=== PATIENT | female | born 1990 | race Caucasian/White ===

== ENCOUNTER → 2023-05-21 15:00 | Outpatient (CLI) | payer SELFPAY | LOC: FLU 06-21 13:31 → EMPH 07-22 15:00 | PROVIDERS: Referring Provider Family Medicine; Visit Provider Family Medicine | DX: Z23 Encounter for immunization (principal) | CPT/HCPCS: 90471; 90686 ==

== ENCOUNTER → 2023-08-27 06:51 | Outpatient (CLI) | payer OTHER, SELFPAY ==
--- NOTE | 2023-08-27 07:03 | DI.US.S_ITS ---
PROCEDURE: US FOLLICLE TRANSVAGINAL COMPARISON: None. INDICATIONS: FOLLICLE SURVEY FINDINGS: Uterus is retroverted measuring 7.1 x 4.7 x 6.2 cm. Endometrial complex measures approximately 7 mm. IUD is in appropriate position. Right ovary measures 2.3 x 3.8 x 2.2 cm, volume 9.9 cc. Focus of decreased echogenicity is present measuring 2.2 x 1.3 x 1.3 cm. Left ovary measures 4.4 x 2.3 x 2.3 cm, volume 12.1 cc. There are 2 foci complex echogenicity measuring 2.1 x 1.5 x 1.9 cm and 1.3 x 1.3 x 1.3 cm. Follicle survey: Left ovary: A total of 7 follicles are identified. Follicle 1: 0.5 x 0.3 x 0.4 cm Follicle 2: 0.3 x 0.2 x 0.4 cm Follicle 3: 0.7 x 0.2 x 0.6 cm Follicle 4: 0.4 x 0.2 x 0.4 cm Follicle 5: 0.4 x 0.2 x 0.4 cm Follicle 6: 0.5 x 0.2 x 0.3 cm Follicle 7: 0.3 x 0.2 cm Right ovary: A total of 6 follicles are identified. Follicle 1: 0.5 x 0.4 x 0.2 cm Follicle 2: 0.5 x 0.3 x 0.4 cm Follicle 3: 0.5 x 0.4 x 0.5 cm Follicle 4: 0.6 x 0.5 x 0.4 cm Follicle 5: 0.4 x 0.2 cm Follicle 6: 0.3 x 0.2 cm IMPRESSION: IUD in appropriate location. Follicle survey as above. Dictated by: Brii Carroll M.D. on 08/28/2023 at 11:08 Approved by: Brii Carroll M.D. on 08/28/2023 at 11:15
[2023-08-27 08:22] LABS: HCG Quantitative /Beta subunit < 2.4 mIU/mL
[2023-08-27 08:24] LABS: Follicle Stimulating Hormone 4.38 mIU/mL; Luteinizing Hormone 2.23 mIU/mL; Progesterone, Total 1.09 ng/mL
[2023-08-27 08:39] LABS: Estradiol, Total 71.9 pg/mL
[2023-08-27 08:42] LABS: Thyroid Stimulating Hormone 1.05 uIU/mL (0.47-4.68)
== END ==
PROVIDERS: Referring Provider Obstetrics & Gynecology Reproductive Endocrinology; Visit Provider Obstetrics & Gynecology Reproductive Endocrinology
DX: Z31.49 Encounter for other procreative investigation and testing (principal); Z97.5 Presence of (intrauterine) contraceptive device
CPT/HCPCS: 36415; 76830; 82670; 83001; 83002; 84144; 84443; 84702

== ENCOUNTER → 2023-11-06 17:12 | Outpatient (CLI) | payer BC, OTHER, SELFPAY ==
--- NOTE | 2023-11-06 17:15 | DI.RAD.S_ITS ---
PROCEDURE: XR ANKLE LT MIN 3V INDICATIONS: Left ankle strain TECHNIQUE: 3 views of the ankle were acquired. COMPARISON: None. FINDINGS: Bones: Age indeterminate transverse fracture through tip of lateral malleolus is seen with up to 1 mm diastasis at fracture site. No other fracture or dislocation. Ankle mortise is normally aligned. No suspicious bony lesions. Soft tissues: No tibiotalar joint effusion. Achilles tendon appears normal. IMPRESSION: Age indeterminate transverse fracture through tip of lateral malleolus as above. Clinical correlation is recommended. Dictated by: Yoseph Pathak M.D. on 11/06/2023 at 22:47 Approved by: Yoseph Pathak M.D. on 11/06/2023 at 22:47
== END ==
PROVIDERS: Referring Provider Nurse Practitioner Family; Visit Provider Nurse Practitioner Family
DX: S82.62XA Displaced fracture of lateral malleolus of left fibula, initial encounter for closed fracture (principal); S96.912A Strain of unspecified muscle and tendon at ankle and foot level, left foot, initial encounter; X58.XXXA Exposure to other specified factors, initial encounter
CPT/HCPCS: 73610

== ENCOUNTER 2024-06-16 18:12 | Emergency (ER) | payer BC, SELFPAY ==
[2024-06-16] VITALS (9 sets, daily range): BP systolic 115–142; BP diastolic 77–99; PULSE 66–91; RESP 16; TEMP 36.5–36.6; O2SAT 97–100; BMI 24.0
--- NOTE | 2024-06-16 18:34 | DI.US.S_ITS ---
PROCEDURE: US PELVIC COMPLETE INDICATIONS: RLQ abd pain, please make sure there is doppler TECHNIQUE: Real-time scanning was performed of the pelvic organs, with image documentation. Additional endovaginal scanning was necessary due to incomplete visualization of the adnexal and endometrial structures by transabdominal scanning. COMPARISON: [facility], CT, CT ABDOMEN PELVIS W CON, 06/16/2024, 18:59. FINDINGS: Uterus: Uterus measures 9 x 4 x 5 cm. Retroverted positioning. Image measures 6 mm. IUD is seen within the endometrium. Ovaries: Right ovary is nonenlarged. Suspected small cyst in the left ovary measuring 1.9 x 1.6 cm, possibly hemorrhagic Color and spectral flows are seen Other: No pathologic free abdominal or pelvic fluid. IMPRESSION: Mildly enlarged left ovary. Color and spectral flows are seen. Nonenlarged right ovary. IUD is seen within the endometrial cavity. Dictated by: Jaswant Hammond M.D. on 06/16/2024 at 20:39 Approved by: Jaswant Hammond M.D. on 06/16/2024 at 20:43
--- NOTE | 2024-06-16 18:34 | DI.CT.S_ITS ---
PROCEDURE: CT ABDOMEN PELVIS W CON INDICATIONS: RLQ abd pain TECHNIQUE: After the administration of intravenous contrast, axial sections acquired from the lung bases to the pubic symphysis. Coronal and sagittal reformats were performed. For radiation dose reduction, the following was used: automated exposure control, adjustment of mA and/or kV according to patient size. COMPARISON: None. FINDINGS: Image quality: Diagnostic. Lower Chest: Juxtapleural nodules with smooth margins, favoring benign intrapulmonary lymph nodes. ABDOMEN: Liver: No solid mass. Gallbladder: No radiopaque gallstones or wall thickening. Biliary ducts: No biliary dilation. Pancreas: No ductal dilation. Spleen: Size is within normal limits. Adrenal Glands: No adrenal nodules. Kidneys and Ureters: No hydronephrosis. No solid mass. No complex renal cystic lesion which requires follow up. No nephrolithiasis. Stomach and Bowel: Normal colonic caliber, without significant wall thickening. No colonic diverticulosis. Normal appendix. Peritoneum: No abnormal intraperitoneal fluid. No free air. Ventral Wall: No significant ventral hernia. Abdominal Nodes: No retroperitoneal or mesenteric adenopathy by size criteria. Vessels: Aorta and inferior vena cava are normal in size. PELVIS: Pelvic Organs: IUD appears appropriately positioned within the endometrium. Symmetric ovaries. Bladder: No bladder wall thickening, accounting for underdistention. Pelvic Nodes: No enlarged lymph nodes. Miscellaneous: No inguinal hernias are seen. Bones: No aggressive osseous abnormality. IMPRESSION: No findings to explain the patient's left lower quadrant pain. No diverticular disease. Symmetric ovaries. Normal appendix. No nephrolithiasis. Dictated by: Jan Wall M.D. on 06/16/2024 at 19:23 Approved by: Jan Wall M.D. on 06/16/2024 at 19:26
--- NOTE | 2024-06-16 18:36 | ED.ABDPAIN ---
HPI - Abdominal Pain General Chief Complaint: Abdominal Pain Stated Complaint: abd px Time Seen by Provider: 06/16/24 18:29 History of Present Illness HPI narrative: Patient is a 34-year-old female with no significant past medical history presents to the ED for evaluation of left lower quadrant abdominal pain, states that she normally has abdominal pain with bowel movements ongoing persistent for the past several months, however today it was worse than normal. States that she was straining on the toilet earlier this morning and 1 hour prior to arrival had intense cramping abdominal pain to the left lower quadrant as well as TA the entire lower abdominal pain which is abnormal for her. She denies any vaginal bleeding or discharge, she states that she does have a history of ovarian cysts but has not had any issues with this previously. She denies any other symptoms at this time. No trauma no falls. Related Data Previous Rx's Medication Instructions Recorded hydrocodone 5 mg-acetaminophen 325 1 tab PO Q8H PRN pain #10 tabs 11/06/23 mg tablet Allergies Allergy/AdvReac Type Severity Reaction Status Date / Time No Known Drug Allergies Allergy Verified 11/06/23 16:37 Review of Systems Review of Systems Narrative: General: Denies fever, chills, weight loss HEENT: Denies headache, eye drainage, eye irritation, head trauma, sore throat, voice change Cardiovascular: Denies any chest pain, palpitations, shortness of breath, tachycardia Respiratory: Denies any shortness of breath, cough, wheeze, stridor GI/: Positive abdominal pain, nausea, denies, vomiting, diarrhea, bright red blood per rectum, melanotic stools, urinary frequency, urinary retention, dysuria, hematuria MSK: Denies any joint pain, muscle pains, swelling Skin: Denies any rashes, lesions, discoloration Neuro: Denies any headache, lightheadedness, dizziness, fainting, weakness Psych: Denies SI/HI Exam Narrative Exam Narrative: General: Cooperative, comfortable, well-developed, not in acute distress HEENT: Normocephalic, atraumatic, PERRLA, normal sclera, eyelids normal, Neck: Active full range of motion, atraumatic Chest: Normal to inspection, negative crepitus, no overlying erythema ecchymosis Respiratory: Normal respiratory effort, not in acute respiratory distress, clear to auscultation bilaterally negative cough, wheeze, tachypnea, rhonchi, rales Cardiology: Regular rate rhythm negative gallop, murmur, rubs GI/: Normal to inspection, soft, nonrigid, mild tenderness to palpation of the lower abdomen, exam deferred MSK: Full range of active range of motion of all 4 extremities, atraumatic Skin: No rashes lesions noted Neuro: Alert awake oriented x3, moves all 4 extremities spontaneously, cranial nerves intact, able to answer all questions appropriately follows commands appropriately Psych: Cooperative, negative suicidal or homicidal ideations Initial Vital Signs Initial Vital Signs: Vital Signs Temperature 97.8 F 06/16/24 18:13 Pulse Rate 91 H 06/16/24 18:13 Respiratory Rate 16 06/16/24 18:13 Blood Pressure 142/99 H 06/16/24 18:13 Pulse Oximetry 99 06/16/24 18:13 Oxygen Delivery Method Room Air 06/16/24 18:13 Course Orders Ordered: ED Orders 06/16/24 18:23 Complete Blood Count AUTO DIFF Stat Comprehensive Metabolic Panel Stat HCG Quantitative /Beta subunit Stat Lactate (Lactic Acid) Stat Lipase Stat MAG [Magnesium] Stat 06/16/24 18:34 CT abdomen pelvis w con Stat US pelvic complete Stat Ondansetron HCl (Ondansetron 4 Mg/2 Ml Inj) 4 mg IV NOW PRN PRN Reason: Nausea And Vomiting Last Admin: 06/16/24 19:24 Dose: 4 mg Documented By: BS Ondansetron HCl (Ondansetron 4 Mg Odt) 4 mg PO NOW PRN PRN Reason: Nausea And Vomiting Discontinued Medications Ketorolac Tromethamine (Ketorolac 30 Mg/Ml Vial) 15 mg IV NOW ONE Stop: 06/16/24 18:35 Last Admin: 06/16/24 18:46 Dose: 15 mg Documented By: CTS Vital Signs Vital signs: Vital Signs - 8 hr 06/16/24 18:13 06/16/24 18:25 06/16/24 18:25 Temperature 97.8 F Pulse Rate 91 H 68 Respiratory Rate 16 Blood Pressure 142/99 H 129/89 Pulse Oximetry 99 100 Oxygen Delivery Method Room Air 06/16/24 18:30 06/16/24 18:30 Temperature Pulse Rate 71 Respiratory Rate Blood Pressure 136/94 H Pulse Oximetry 100 Oxygen Delivery Method MDM - Abdominal Pain Differential Diagnosis Differential diagnosis: Likely abdominal pain, acute appendicitis, constipation, diverticulitis, gastroenteritis and small bowel obstruction Lab Data 06/16/24 18:23 06/16/24 18:23 Labs: Lab Results 06/16/24 Range/Units 18:23 WBC 8.1 (4.5-11.0) X10^3/uL RBC 4.28 (4.0-5.2) X10^6/uL Hgb 13.5 (12.0-16.0) g/dL Hct 39.6 (36-46) % MCV 92.5 (80-100) fL MCH 31.6 (26-34) PG MCHC 34.2 (30-36) % RDW 12.6 (11.6-14.8) % Plt Count 336 (150-400) X10^3/uL Neut % (Auto) 52.9 (50-75) % Lymph % (Auto) 35.4 (25-40) % [place] % (Auto) 7.5 (3-14) % Eos % (Auto) 3.3 (2-4) % Baso % (Auto) 0.9 (0-2) % Neut # (Auto) 4300 (2110-5371) /uL Lymph # (Auto) 2900 (0913-3006) /uL [place] # (Auto) 600 (0-900) /uL Eos # (Auto) 300 (0-450) /uL Baso # (Auto) 100 (0-100) /uL Sodium 138 (137-145) mmol/L Potassium 4.1 (3.4-5.1) mmol/L Chloride 107 (98-107) mmol/L Carbon Dioxide 22 (22-32) mmol/L BUN 12 (7-17) mg/dL Creatinine 0.74 (0.52-1.04) mg/dL Estimated GFR > 60 (>60) mL/min BUN/Creatinine Ratio 16.2 (6-22) Glucose 93 (70-100) mg/dL Lactate 0.8 (0.7-2.1) mmol/L Calcium 9.0 (8.4-10.2) mg/dL Magnesium 2.0 (1.6-2.3) mg/dL Total Bilirubin 0.7 (0.2-1.3) mg/dL AST 25 (14-36) IU/L ALT 17 (<35) IU/L Alkaline Phosphatase 49 (38-126) U/L Total Protein 7.6 (6.3-8.2) g/dL Albumin 4.6 (3.5-5.0) g/dL Globulin 3.0 (1.7-4.1) g/dL Albumin/Globulin Ratio 1.5 (1.0-2.8) Lipase 244 (23-300) U/L HCG, Quant < 2.39 mIU/mL Imaging Data CT scan - abdomen/pelvis: Radiologist's Impression: [address] [id number] [address] Scan Report Signed Patient: Micki Thompson MR#: [id number] : 1990 Acct:[id number] Age/Sex: 34 / F Date of Service: 06/16/24 Loc: ED Accession Number: [id number] Procedure: CT abdomen pelvis w con Ordering Provider: Isreal De La Garza D.O. PROCEDURE: CT ABDOMEN PELVIS W CON INDICATIONS: RLQ abd pain TECHNIQUE: After the administration of intravenous contrast, axial sections acquired from the lung bases to the pubic symphysis. Coronal and sagittal reformats were performed. For radiation dose reduction, the following was used: automated exposure control, adjustment of mA and/or kV according to patient size. COMPARISON: None. FINDINGS: Image quality: Diagnostic. Lower Chest: Juxtapleural nodules with smooth margins, favoring benign intrapulmonary lymph nodes. ABDOMEN: Liver: No solid mass. Gallbladder: No radiopaque gallstones or wall thickening. Biliary ducts: No biliary dilation. Pancreas: No ductal dilation. Spleen: Size is within normal limits. Adrenal Glands: No adrenal nodules. Kidneys and Ureters: No hydronephrosis. No solid mass. No complex renal cystic lesion which requires follow up. No nephrolithiasis. Stomach and Bowel: Normal colonic caliber, without significant wall thickening. No colonic diverticulosis. Normal appendix. Peritoneum: No abnormal intraperitoneal fluid. No free air. Ventral Wall: No significant ventral hernia. Abdominal Nodes: No retroperitoneal or mesenteric adenopathy by size criteria. Vessels: Aorta and inferior vena cava are normal in size. PELVIS: Pelvic Organs: IUD appears appropriately positioned within the endometrium. Symmetric ovaries. Bladder: No bladder wall thickening, accounting for underdistention. Pelvic Nodes: No enlarged lymph nodes. Miscellaneous: No inguinal hernias are seen. Bones: No aggressive osseous abnormality. IMPRESSION: No findings to explain the patient's left lower quadrant pain. No diverticular disease. Symmetric ovaries. Normal appendix. No nephrolithiasis. US - abdomen: Radiologist's Impression: [address] [address] Ultrasound Report Signed Patient: Micki Thompson MR#: [id number] : 1990 Acct:[id number] Age/Sex: 34 / F Date of Service: 06/16/24 Loc: ED Accession Number: [id number] Procedure: US pelvic complete Ordering Provider: Isreal De La Garza D.O. PROCEDURE: US PELVIC COMPLETE INDICATIONS: RLQ abd pain, please make sure there is doppler TECHNIQUE: Real-time scanning was performed of the pelvic organs, with image documentation. Additional endovaginal scanning was necessary due to incomplete visualization of the adnexal and endometrial structures by transabdominal scanning. COMPARISON: [facility], CT, CT ABDOMEN PELVIS W CON, 06/16/2024, 18:59. FINDINGS: Uterus: Uterus measures 9 x 4 x 5 cm. Retroverted positioning. Image measures 6 mm. IUD is seen within the endometrium. Ovaries: Right ovary is nonenlarged. Suspected small cyst in the left ovary measuring 1.9 x 1.6 cm, possibly hemorrhagic Color and spectral flows are seen Other: No pathologic free abdominal or pelvic fluid. IMPRESSION: Mildly enlarged left ovary. Color and spectral flows are seen. Nonenlarged right ovary. IUD is seen within the endometrial cavity. [facility] Narrative Medical decision making narrative: Patient is a 34-year-old female with no significant past medical history presents for lower abdominal pain 1 hour prior to arrival. Patient states she does have a history of ovarian cysts, states that she did start her period today. Patient's lab work unremarkable, ultrasound shows small ovarian cyst on the left as well as recent hemorrhagic cyst most likely causing patient's symptoms. CT scan was also performed which did not show any acute findings. On repeat examination patient nontender non peritoneal abdomen, states symptoms resolved after administration medication here. She was given strict return precautions and was instructed follow up with OBGYN and PCP in outpatient setting. She verbalized understanding of this and agrees to being discharged home with outpatient follow up. Discharge Plan Departure Patient Disposition: Home Clinical Impression: Ovarian cyst Activity Restrictions/Additional Instructions: Please follow up with primary care and OBGYN Please read the discharge instructions sheet carefully and bring all papers to all doctor follow-up visits, as it may contain information that your doctor may want to see. Disease processes change and evolve, if your symptoms worsen or if you develop any new symptoms that are concerning to you please return for evaluation. Your evaluation today does not show any evidence of any life-threatening/serious illnesses requiring admission to the hospital or surgery. Please follow-up with your doctor for re-evaluation in approximately 1 day. Seek immediate medical attention for any worrisome symptoms. Prescriptions: No Action hydrocodone-acetaminophen 5-325 mg tablet 1 tab PO Q8H PRN (Reason: pain) Qty: 10 0RF Referrals: Miscellaneous,Doctor, MD [Primary Care Provider] - Stand Alone Forms: Patient Portal/API/Survey
[2024-06-16 18:39] LABS: Add Manual Diff / Slide Review NO; Basophils Absolute Auto 100 /uL (0-100); Basophils Percent Auto 0.9 % (0-2); Eosinophils Absolute Auto 300 /uL (0-450); Eosinophils Percent Auto 3.3 % (2-4); Hematocrit 39.6 % (36-46); Hemoglobin 13.5 g/dL (12.0-16.0); Lymphocytes Absolute Auto 2900 /uL (1100-4500); Lymphocytes Percent Auto 35.4 % (25-40); Mean Corpuscular HGB Conc 34.2 % (30-36); Mean Corpuscular Hemoglobin 31.6 PG (26-34); Mean Corpuscular Volume 92.5 fL (80-100); Monocytes Absolute Auto 600 /uL (0-900); Monocytes Percent Auto 7.5 % (3-14); Neutrophils Absolute Auto 4300 /uL (1500-7000); Neutrophils Percent Auto 52.9 % (50-75); Platelet Count 336 X10^3/uL (150-400); Red Blood Cell Count 4.28 X10^6/uL (4.0-5.2); Red Cell Distribution Width 12.6 % (11.6-14.8); White Blood Cell Count 8.1 X10^3/uL (4.5-11.0)
[2024-06-16] MEDS: KETOROLAC 30 MG/ML VIAL 15 MG IV (18:46)
[2024-06-16 18:58] LABS: Alanine Aminotransferase 17 IU/L (<35); Albumin 4.6 g/dL (3.5-5.0); Albumin Globulin Ratio 1.5 (1.0-2.8); Alkaline Phosphatase 49 U/L (38-126); Aspartate Aminotransferase 25 IU/L (14-36); BUN Creatinine Ratio 16.2 (6-22); Bilirubin Total 0.7 mg/dL (0.2-1.3); Blood Urea Nitrogen 12 mg/dL (7-17); Carbon Dioxide 22 mmol/L (22-32); Chloride 107 mmol/L (98-107); Estimated Glomerular Filt Rate > 60 mL/min (>60); Glucose 93 mg/dL (70-100); HEMOLYSIS < 15 (0-50); Lipase 244 U/L (23-300); Potassium 4.1 mmol/L (3.4-5.1); Sodium 138 mmol/L (137-145); Total Protein 7.6 g/dL (6.3-8.2)
[2024-06-16 18:59] LABS: Lactate (Lactic Acid) 0.8 mmol/L (0.7-2.1)
[2024-06-16 19:16] LABS: HCG Quantitative /Beta subunit < 2.39 mIU/mL
[2024-06-16] MEDS: ONDANSETRON 4 MG/2 ML INJ IV (19:24)
== END 2024-06-16 21:17 | disposition home or self-care (01) ==
PROVIDERS: Emergency Provider Student in an Organized Health Care Education/Training Program
DX: N83.202 Unspecified ovarian cyst, left side (principal)
CPT/HCPCS: 36415; 74177; 76856; 80053; 81003; 83605; 83690; 83735; 84702; 85025; 96374; 96375; 99284; J1885; J2405; Q9967

== ENCOUNTER 2024-09-13 23:03 | Emergency (ER) | payer BC, SELFPAY ==
[2024-09-13 23:11] VITALS: BP 125/76; PULSE 90; RESP 16; O2SAT 99; BMI 23.1
[2024-09-14] VITALS (7 sets, daily range): BP systolic 106–122; BP diastolic 63–75; PULSE 65–102; RESP 8–25; O2SAT 93–100
--- NOTE | 2024-09-14 00:29 | EKG_ITS ---
[address] [place] [address] Test Date: 2024-09-14 Pat Name: Micki Thompson Department: Room: Gender: Female [employer] Specialist: ANTONIO ERENDIRA : 1990 Requested By: Order Number: [id number] Reading MD: Vu Lam Measurements Intervals Ernul Rate: 85 P: 65 NV: 148 QRS: 86 QRSD: 108 T: 56 QT: 374 QTc: 445 Interpretive Statements Sinus rhythm with frequent premature ventricular complexes in a pattern of bigeminy Nonspecific ST abnormality Electronically Signed On 09-14-2024 9:10:08 PST by Vu Lam
[2024-09-14] MEDS: SODIUM CHLORIDE 0.9% 1,000 ML 1000 ML IV (00:31)
[2024-09-14] MEDS: METOCLOPRAMIDE 10 MG/2 ML INJ IV (00:32)
[2024-09-14] MEDS: diphenhydrAMINE 50 MG/ML VIAL 25 MG IV (00:32)
[2024-09-14] MEDS: DEXAMETHASONE 10 MG/ML VIAL IV (00:32)
[2024-09-14] MEDS: MAGNESIUM SULFATE 2 GM/50 ML PIGGYBACK IV (00:33)
[2024-09-14] MEDS: ACETAMINOPHEN 325 MG TABLET 650 MG PO (00:41)
[2024-09-14 00:46] LABS: Add Manual Diff / Slide Review NO; Basophils Absolute Auto 100 /uL (0-100); Basophils Percent Auto 0.8 % (0-2); Eosinophils Absolute Auto 200 /uL (0-450); Eosinophils Percent Auto 2.7 % (2-4); Hematocrit 40.4 % (36-46); Hemoglobin 13.9 g/dL (12.0-16.0); Lymphocytes Absolute Auto 2300 /uL (1100-4500); Lymphocytes Percent Auto 28.5 % (25-40); Mean Corpuscular HGB Conc 34.3 % (30-36); Mean Corpuscular Hemoglobin 31.1 PG (26-34); Mean Corpuscular Volume 90.7 fL (80-100); Monocytes Absolute Auto 700 /uL (0-900); Monocytes Percent Auto 8.2 % (3-14); Neutrophils Absolute Auto 4900 /uL (1500-7000); Neutrophils Percent Auto 59.8 % (50-75); Platelet Count 264 X10^3/uL (150-400); Red Blood Cell Count 4.45 X10^6/uL (4.0-5.2); Red Cell Distribution Width 12.9 % (11.6-14.8); White Blood Cell Count 8.2 X10^3/uL (4.5-11.0)
[2024-09-14 00:52] LABS: BUN Creatinine Ratio 17.4 (6-22); Blood Urea Nitrogen 12 mg/dL (7-17); Calcium 9.2 mg/dL (8.4-10.2); Carbon Dioxide 27 mmol/L (22-32); Chloride 105 mmol/L (98-107); Creatine Kinase 24 U/L (30-135); Estimated Glomerular Filt Rate > 60 mL/min (>60); Glucose 103 mg/dL (70-100); HEMOLYSIS < 15 (0-50); Lipase 228 U/L (23-300); Magnesium 1.9 mg/dL (1.6-2.3); Potassium 3.5 mmol/L (3.4-5.1); Sodium 137 mmol/L (137-145)
--- NOTE | 2024-09-14 00:54 | PC.NURSE ---
Pt states MATTHEWS started in morning and worsened while driving home at 7 pm (nausea) started. Went home took a zofran and improved nausea a lot.
[2024-09-14 01:03] LABS: Troponin I < 0.012 ng/mL (0.01-0.034)
--- NOTE | 2024-09-14 01:22 | ED.HA ---
HPI - Headache General Chief Complaint: Headache Stated Complaint: headache, nausea, lower than normal HR Time Seen by Provider: 09/14/24 00:20 Mode of arrival: Ambulatory History of Present Illness HPI Narrative: 34-year-old female without any significant past medical history comes into the ED from home for evaluation of headache, states that she has a history of headaches however today she had worsening headache, states the right side lights and sounds make it worse no trauma no falls no other visual disturbances patient states that she was dealing with this however states that she also was feeling some palpitations felt like her heart rate was going slow therefore decided come into the ED for further evaluation treatment. She denies any chest pain shortness breath fever chills nausea vomiting abdominal pain or any other GI/ symptoms at this time. Related Data Previous Rx's Medication Instructions Recorded hydrocodone 5 mg-acetaminophen 325 1 tab PO Q8H PRN pain #10 tabs 11/06/23 mg tablet Allergies Allergy/AdvReac Type Severity Reaction Status Date / Time No Known Drug Allergies Allergy Verified 11/06/23 16:37 Review of Systems Review of Systems Narrative: General: Denies fever, chills, weight loss HEENT: Positive headache, denies eye drainage, eye irritation, head trauma, sore throat, voice change Cardiovascular: Positive palpitations, Denies any chest pain, shortness of breath, tachycardia Respiratory: Denies any shortness of breath, cough, wheeze, stridor GI/: Denies any abdominal pain, nausea, vomiting, diarrhea, bright red blood per rectum, melanotic stools, urinary frequency, urinary retention, dysuria, hematuria MSK: Denies any joint pain, muscle pains, swelling Skin: Denies any rashes, lesions, discoloration Neuro: Denies any headache, lightheadedness, dizziness, fainting, weakness Psych: Denies SI/HI Patient History Social History Smoking Status: Never smoker Smoking Status: Never smoker Exam Narrative Exam Narrative: General: Cooperative, comfortable, well-developed, not in acute distress HEENT: Normocephalic, atraumatic, PERRLA, normal sclera, eyelids normal, Neck: Active full range of motion, atraumatic Chest: Normal to inspection, negative crepitus, no overlying erythema ecchymosis Respiratory: Normal respiratory effort, not in acute respiratory distress, clear to auscultation bilaterally negative cough, wheeze, tachypnea, rhonchi, rales Cardiology: Regular rate rhythm negative gallop, murmur, rubs GI/: Normal to inspection, soft, nonrigid, no tenderness to palpation, exam deferred MSK: Full range of active range of motion of all 4 extremities, atraumatic Skin: No rashes lesions noted Neuro: NIH of 0, no focal deficits noted Alert awake oriented x3, moves all 4 extremities spontaneously, cranial nerves intact, able to answer all questions appropriately follows commands appropriately Psych: Cooperative, negative suicidal or homicidal ideations Initial Vital Signs Initial Vital Signs: Vital Signs Pulse Rate 90 09/13/24 23:11 Respiratory Rate 16 09/13/24 23:11 Blood Pressure 125/76 09/13/24 23:11 Pulse Oximetry 99 09/13/24 23:11 Oxygen Delivery Method Room Air 09/13/24 23:11 Course Orders Ordered: ED Orders 09/14/24 00:29 EKG-12 Lead Stat 09/14/24 00:31 BMP [Basic Metabolic Panel] Stat CBC Auto Diff [Complete Blood Count AUTO DIFF] Stat Lipase Stat MAG [Magnesium] Stat TSH [Thyroid Stimulating Hormone] Stat Troponin & CK Cardiac Panel Stat Discontinued Medications Acetaminophen (Acetaminophen 325 Mg Tablet) 650 mg PO NOW ONE Stop: 09/14/24 00:21 Last Admin: 09/14/24 00:41 Dose: 650 mg Documented By: Dexamethasone (Dexamethasone 10 Mg/Ml Vial) 10 mg IV NOW ONE Stop: 09/14/24 00:21 Last Admin: 09/14/24 00:32 Dose: 10 mg Documented By: Diphenhydramine HCl (Diphenhydramine 50 Mg/Ml Vial) 25 mg IV NOW ONE Stop: 09/14/24 00:21 Last Admin: 09/14/24 00:32 Dose: 25 mg Documented By: Sodium Chloride (Normal Saline 0.9%) 1,000 mls @ 1,000 mls/hr IV BOLUS ONE Stop: 09/14/24 01:19 Last Admin: 09/14/24 00:31 Dose: 1,000 mls/hr Documented By: Magnesium Sulfate (Magnesium Sulfate) 2 gm in 50 mls @ 150 mls/hr IV NOW ONE Stop: 09/14/24 00:43 Last Infusion: 09/14/24 01:01 Dose: Infused Documented By: Co-signed By: EVANGELIST Admin: 09/14/24 00:33 Dose: 150 mls/hr Documented By: Co-signed By: SAM Metoclopramide HCl (Metoclopramide 10 Mg/2 Ml Inj) 10 mg IV NOW ONE Stop: 09/14/24 00:21 Last Admin: 09/14/24 00:32 Dose: 10 mg Documented By: AB Vital Signs Vital signs: Vital Signs - 8 hr 09/13/24 23:11 09/14/24 00:19 09/14/24 00:20 Pulse Rate 90 75 Respiratory Rate 16 14 Blood Pressure 125/76 106/63 Pulse Oximetry 99 93 Oxygen Delivery Method Room Air 09/14/24 00:20 09/14/24 00:30 09/14/24 00:47 Pulse Rate 65 102 H Respiratory Rate 8 L 25 H Blood Pressure 118/64 Pulse Oximetry 98 99 Oxygen Delivery Method 09/14/24 00:47 Pulse Rate 83 Respiratory Rate 14 Blood Pressure Pulse Oximetry 99 Oxygen Delivery Method Room Air MDM - Headache Differential Diagnosis Differential diagnosis: Likely migraine, tension headache and other (Electrolyte abnormality, ACS,) Lab Data 09/14/24 00:31 09/14/24 00:31 Labs: Lab Results 09/14/24 Range/Units 00:31 WBC 8.2 (4.5-11.0) X10^3/uL RBC 4.45 (4.0-5.2) X10^6/uL Hgb 13.9 (12.0-16.0) g/dL Hct 40.4 (36-46) % MCV 90.7 (80-100) fL MCH 31.1 (26-34) PG MCHC 34.3 (30-36) % RDW 12.9 (11.6-14.8) % Plt Count 264 (150-400) X10^3/uL Neut % (Auto) 59.8 (50-75) % Lymph % (Auto) 28.5 (25-40) % Ponce % (Auto) 8.2 (3-14) % Eos % (Auto) 2.7 (2-4) % Baso % (Auto) 0.8 (0-2) % Neut # (Auto) 4900 (6309-9556) /uL Lymph # (Auto) 2300 (8669-2400) /uL Ponce # (Auto) 700 (0-900) /uL Eos # (Auto) 200 (0-450) /uL Baso # (Auto) 100 (0-100) /uL Sodium 137 (137-145) mmol/L Potassium 3.5 (3.4-5.1) mmol/L Chloride 105 (98-107) mmol/L Carbon Dioxide 27 (22-32) mmol/L BUN 12 (7-17) mg/dL Creatinine 0.69 (0.52-1.04) mg/dL Estimated GFR > 60 (>60) mL/min BUN/Creatinine Ratio 17.4 (6-22) Glucose 103 H (70-100) mg/dL Calcium 9.2 (8.4-10.2) mg/dL Magnesium 1.9 (1.6-2.3) mg/dL Total Creatine Kinase 24 L (30-135) U/L Troponin I < 0.012 (0.01-0.034) ng/mL Lipase 228 (23-300) U/L ECG Data Interpretation: EKG interpreted by ED physician sinus at 85 beats per minute QTC 445 frequent PVCs noted MDM Narrative Medical decision making narrative: 34-year-old female without any significant past medical history presents to the ED for headache palpitations. Patient states he had sudden-onset headache, light sounds made symptoms worse to the right side of her head no trauma no falls, had complete resolution of symptoms after administration of medication here. Patient stating that she was also feeling palpitation felt like her heart rate was extremely slow which was 1 of the reason she came in, she states that this only lasted for a few seconds has not had any other palpitations chest pain shortness of breath since the initial symptoms several hours prior to arrival. To note patient did have EKG which showed frequent PVCs however on monitor here PVCs abated after 2 g of magnesium patient remained asymptomatic during her stay here in the emergency department. Patient states that she is completely normal at this time. Patient was instructed follow up with PCP cardiology outpatient setting strict return precautions given verbalized understanding of this case being discharged home with outpatient follow up Discharge Plan Departure Patient Disposition: Home Clinical Impression: Headache, Frequent PVCs Instructions: DI for Headache Activity Restrictions/Additional Instructions: Please follow up with Cardiology and primary care in outpatient setting Please read the discharge instructions sheet carefully and bring all papers to all doctor follow-up visits, as it may contain information that your doctor may want to see. Disease processes change and evolve, if your symptoms worsen or if you develop any new symptoms that are concerning to you please return for evaluation. Your evaluation today does not show any evidence of any life-threatening/serious illnesses requiring admission to the hospital or surgery. Please follow-up with your doctor for re-evaluation in approximately 1 day. Seek immediate medical attention for any worrisome symptoms. *If you do not have a primary care provider please contact the [facility] Resource line at [phone]. They will ask some questions about your medical history and help get you set up with a doctor in the community. Prescriptions: No Action hydrocodone-acetaminophen 5-325 mg tablet 1 tab PO Q8H PRN (Reason: pain) Qty: 10 0RF Referrals: Miscellaneous,DoctorMD [Primary Care Provider] - Uziel Haas MD [Physician] - Stand Alone Forms: Patient Portal/API/Survey
[2024-09-14 01:28] LABS: Thyroid Stimulating Hormone 1.88 uIU/mL (0.47-4.68)
== END 2024-09-14 01:40 | disposition home or self-care (01) ==
PROVIDERS: Emergency Provider Student in an Organized Health Care Education/Training Program
DX: R51.9 Headache, unspecified (principal); I49.3 Ventricular premature depolarization; R00.2 Palpitations
CPT/HCPCS: 36415; 80048; 82550; 83690; 83735; 84443; 84484; 85025; 93005; 96365; 96375; 99284; J1100; J1200; J2765; J3475

== ENCOUNTER → 2024-09-29 08:52 | Outpatient (CLI) | payer BC, SELFPAY ==
[2024-09-29 10:50] LABS: Alanine Aminotransferase 19 IU/L (<35); Albumin 4.5 g/dL (3.5-5.0); Albumin Globulin Ratio 1.8 (1.0-2.8); Alkaline Phosphatase 51 U/L (38-126); Aspartate Aminotransferase 22 IU/L (14-36); Bilirubin Total 0.9 mg/dL (0.2-1.3); Bilirubin Unconjugated 0.7 mg/dL (0.0-1.1); Cholesterol 169 mg/dL (140-199); Globulin 2.5 g/dL (1.7-4.1); HDL Cholesterol 57 mg/dL (40-60); HEMOLYSIS < 15 (0-50); LDL Cholesterol Calculated 101 mg/dL (<100); Triglycerides 57 mg/dL (35-150)
[2024-09-29 11:05] LABS: Free T4, Direct Thyroxine 1.14 ng/dL (0.78-2.19)
== END ==
PROVIDERS: PCP Nurse Practitioner Family; Referring Provider Internal Medicine Cardiovascular Disease; Visit Provider Internal Medicine Cardiovascular Disease
DX: R00.2 Palpitations (principal); I49.3 Ventricular premature depolarization; Z13.220 Encounter for screening for lipoid disorders
CPT/HCPCS: 36415; 80061; 80076; 84439; 84443

== ENCOUNTER → 2024-11-16 08:49 | Outpatient (CLI) | payer BC, SELFPAY ==
[2024-11-16 09:20] LABS: Strep Grp A by PCR Rapid Negative (Negative)
--- NOTE | 2024-11-30 13:24 | DI.RAD.S_ITS ---
PROCEDURE: XR CHEST 2V INDICATIONS: Chest congestion/cough x 3weeks TECHNIQUE: 2 views of the chest were acquired. COMPARISON: None. FINDINGS: Surgical changes and devices: None. Lungs and pleura: Lungs are clear. No pleural effusions or pneumothorax. Mediastinum: Mediastinal contours are normal. Heart size is normal. Bones and chest wall: No suspicious bony abnormalities. Soft tissues appear unremarkable. IMPRESSION: No acute cardiothoracic process. Dictated by: Luis Felipe Agudelo M.D. on 11/30/2024 at 14:14 Approved by: Luis Felipe Agudelo M.D. on 11/30/2024 at 14:15
== END ==
PROVIDERS: PCP Nurse Practitioner Family; Referring Provider Obstetrics & Gynecology; Visit Provider Obstetrics & Gynecology
DX: J02.9 Acute pharyngitis, unspecified (principal)
CPT/HCPCS: 87651

== ENCOUNTER → 2025-07-31 11:20 | Outpatient (CLI) | payer BC, SELFPAY ==
[2025-07-31 12:31] LABS: Influenza A - CEPHEID Flu A NEGATIVE (NEGATIVE); Influenza B - CEPHEID Flu B NEGATIVE (NEGATIVE)
[2025-07-31 12:35] LABS: COVID-19 CEPHEID 4-PLEX PCR Negative (Negative)
== END ==
PROVIDERS: PCP Family Medicine; Referring Provider Physician Assistant; Visit Provider Physician Assistant
DX: R05.1 Acute cough (principal); J02.9 Acute pharyngitis, unspecified
CPT/HCPCS: 87070; 87637

== ENCOUNTER → 2025-08-01 08:28 | Outpatient (CLI) | payer BC, SELFPAY ==
[2025-08-01 12:02] LABS: Vitamin D 25 Hydroxy (D3) 21.8 ng/mL (30.0-100.0)
== END ==
PROVIDERS: PCP Family Medicine; Referring Provider Family Medicine; Visit Provider Family Medicine
DX: E55.9 Vitamin D deficiency, unspecified (principal)
CPT/HCPCS: 36415; 82306